=== PATIENT | male | born 1980 | race Caucasian/White ===

== ENCOUNTER 2016-10-01 23:20 | Emergency (ER) | payer OTHER ==
[~2016-10-01] VITALS: Ht 182.8 cm; Wt 90.7 kg
[~2016-10-01 23:20] MED LIST: ADDERALL XR15 MG PO; AMOXICILLIN500 M2 PO; ANTIBIOTIC O500 U/GM TP; BACTRIM DS 8001 TA1 PO; FIORICET 325 MG1 TAB PO; IBU-8800 MG PO; MOTRIN800 MG PO; Orphenadrine C100 MG PO; PREDNISONE20 M1 PO; TRIMOX500 MG PO; VOLTAREN50 M1 PO; ZOFRAN ODT4 MG SL; ZYVOX600 MG PO
[2016-10-01] MEDS ORDERED: ADDERALL 30 MG30 MG PO (23:26)
[2016-10-01] MEDS ORDERED: SUBOXONE 8 MG-1 EACH SL (23:26)
[2016-10-01] MEDS ORDERED: SILVADENE1% T (23:31)
[2016-10-01] MEDS ORDERED: NAPROSYN500 MG PO (23:31)
[2016-10-01] MEDS ORDERED: KEFLEX500 M1 PO (23:38)
== END 2016-10-02 00:02 | disposition home or self-care (01) ==
LOC: ED 23:20
DX: T23.201A Burn of second degree of right hand, unspecified site, initial encounter (principal); R03.0 Elevated blood-pressure reading, without diagnosis of hypertension; F17.200 Nicotine dependence, unspecified, uncomplicated; Z91.013 Allergy to seafood; X10.2XXA Contact with fats and cooking oils, initial encounter; Y93.89 Activity, other specified; Y92.9 Unspecified place or not applicable; Y99.9 Unspecified external cause status

== ENCOUNTER 2017-07-06 09:50 | Emergency (ER) | payer OTHER ==
[~2017-07-06] VITALS: Ht 182.8 cm; Wt 93.0 kg
[~2017-07-06 09:50] MED LIST changes: +ADDERALL 30 MG30 MG PO; +KEFLEX500 M1 PO; +NAPROSYN500 MG PO; +SILVADENE1% T; +SUBOXONE 8 MG-1 EACH SL
== END 2017-07-06 10:53 | disposition home or self-care (01) ==
LOC: ED 09:50
DX: F98.8 Other specified behavioral and emotional disorders with onset usually occurring in childhood and adolescence (principal); Z79.899 Other long term (current) drug therapy; Z91.013 Allergy to seafood

== ENCOUNTER → 2019-05-11 | Outpatient (CLI) | payer OTHER ==
--- NOTE | ~2019-05-11 | EKG ---
[place], [place] ELECTROCARDIOGRAM REPORT NAME: JAIME BOWMAN UNIT #: [id number] ROOM: DOCTOR: EPIPHANY DRAFT REPORT BIRTHDATE: [birth year] [facility] Test Date: 2019-05-11 Test Time: 11:04:20 Pat Name: JAIME BOWMAN Department: Room: Gender: Noodle Maker: Shyann Magallanes : 1980 Requested By: JESSICA GOEL Order Number: [id number] Reading MD: Chas Carrillo MD Measurements Intervals Mobile Rate: 85 P: 32 SD: 142 QRS: 7 QRSD: 105 T: 11 QT: 356 QTc: 424 Interpretive Statements Sinus rhythm RSR' in V1 or V2, right VCD or RVH ST elev, probable normal early repol pattern No previous ECG available for comparison Electronically Signed On 05-12-2019 15:44:40 PDT by Chas Carrillo MD CM:EKGRPT:ELECTROCARDIOGRAM REPORT [id number] JESSICA HUDSON DRAFT REPORT JESSICA GOEL
== END | disposition home or self-care (01) ==
LOC: CARD 10:53
DX: Z51.81 Encounter for therapeutic drug level monitoring (principal); Z79.899 Other long term (current) drug therapy